=== PATIENT | male | born 1960 | race Caucasian/White ===

== ENCOUNTER 2017-01-18 10:11 | Emergency (ER) | payer OTHER ==
[~2017-01-18] VITALS: Ht 188 cm; Wt 75.0 kg
[~2017-01-18 10:11] MED LIST: ASPIR-TRIN325 M1 PO; CATAPRES-TTS 30.3 MG TD; CITALOPRAM HBR10 MG PO; CLONIDINE HCL0.2 MG PO; ENDOCET 5-3251 EACH PO; FLEXERIL10 MG PO; GABAPENTIN300 MG PO; INDERAL LA80 MG PO; INDERAL80 M1 PO; INDERAL80 MG PO; LIDODERM 5% P1 PATCH TD; MOTRIN600 MG PO; MOTRIN800 MG PO; MYSOLINE50 MG PO; NAPROXEN500 M1 PO; NORCO 5/3251 TABLET PO; NORVASC5 MG PO; OxyCODONE PO; PROPRANOLOL HC160 MG PO; PROPRANOLOL HCL80 MG PO; TRAMADOL HCL50 MG PO; ULTRAM50 MG PO; VICODIN,LORT1 TABLET PO
[2017-01-18 10:22] VITALS: BP 124/79
[2017-01-18] MEDS ORDERED: BACTRIM,SEPT1 TABLET PO (12:36)
[2017-01-18] MEDS ORDERED: ULTRAM50 MG PO (12:36)
[2017-01-18] MEDS ORDERED: KEFLEX500 MG PO (12:36)
== END 2017-01-18 13:17 | disposition home or self-care (01) ==
LOC: EME 10:11 → RME 10:11
PROC: 0H9KXZZ Drainage of Right Lower Leg Skin, External Approach (ICD-10-PCS; principal; 2017-01-18)
DX: L02.415 Cutaneous abscess of right lower limb (principal); G20 Parkinson's disease; F17.200 Nicotine dependence, unspecified, uncomplicated
CPT/HCPCS: 73564; 99281; 99284

== ENCOUNTER 2017-02-05 23:15 | Emergency (ER) | payer OTHER ==
[~2017-02-05] VITALS: Ht 188 cm; Wt 75.4 kg
[~2017-02-05 23:15] MED LIST changes: +BACTRIM,SEPT1 TABLET PO; +KEFLEX500 MG PO
[2017-02-06] MEDS ORDERED: CLEOCIN300 MG PO (00:03)
[2017-02-06 00:16] VITALS: BP 122/78
== END 2017-02-06 00:17 | disposition home or self-care (01) ==
LOC: EME 23:15
PROC: 0S9C3ZZ Drainage of Right Knee Joint, Percutaneous Approach (ICD-10-PCS; principal; 2017-02-05)
DX: M70.51 Other bursitis of knee, right knee (principal); I10 Essential (primary) hypertension; G20 Parkinson's disease; F17.200 Nicotine dependence, unspecified, uncomplicated
CPT/HCPCS: 80048; 85027; 99281; 99284; G0480

== ENCOUNTER 2017-03-31 12:09 | Emergency (ER) | payer OTHER ==
[~2017-03-31] VITALS: Ht 188 cm; Wt 74.0 kg
[~2017-03-31 12:09] MED LIST changes: +CLEOCIN300 MG PO
[2017-03-31 13:40] LABS: CHLORIDE 105 mEq/L (99-109); POTASSIUM 5.1 mEq/L (3.7-5.4); SODIUM 140 mEq/L (136-147)
[2017-03-31 13:43] LABS: GLUCOSE 87 mg/dL (70-99)
[2017-03-31 13:44] LABS: ANION GAP 13 MEQ/L (2-14)
[2017-03-31 13:45] LABS: TOTAL BILIRUBIN 0.7 mg/dL (0.0-1.0)
[2017-03-31 13:46] LABS: ALKALINE PHOSPHATASE 65 IU/L (3-129); GFR ESTIMATE (CALCULATED) > 59 mL/min/; SERUM ETHYL ALCOHOL 237 mg/dL
[2017-03-31 13:48] LABS: UREA NITROGEN (BUN) 9 mg/dL (9-23)
[2017-03-31 13:50] LABS: LIPASE 37 U/L (1.0-51.0)
[2017-03-31 14:26] LABS: EOSINOPHIL (%) 3.6 % (0-5); EOSINOPHIL COUNT 0.2 K/uL (0-0.3); HEMATOCRIT 43.5 % (38.0-50.0); IMMATURE GRANULOCYTE (%) 0.2 % (0.0-0.7); INSTRUMENT ABS NEUTROPHIL CT 2.4 K/uL; LYMPHOCYTE COUNT 1.4 K/uL (1.0-2.8); MCH 34.6 PG (29.0-34.0); MCHC 33.8 G/DL (30.0-36.0); MCV 102.4 FL (86-99); MEAN PLAT.VOLUME 10.8 uM^3 (9.0-12.4); MONOCYTE (%) 10.9 % (3-12); MONOCYTE COUNT 0.5 K/uL (0-0.8); NEUTROPHIL (%) 52.8 % (45-76); NEUTROPHIL COUNT 2.4 K/uL (1.8-6.4); PLATELET COUNT 119 K/uL (156-360); RBC DIS.WIDTH-CV 12.7 % (11.8-14.6); RBC DIS.WIDTH-SD 48.2 % (39-53); RED BLOOD COUNT 4.25 M/uL (4.00-5.50); WHITE BLOOD COUNT 4.5 K/uL (4.1-10.2)
[2017-03-31 15:03] LABS: PROTHROMBIN TIME 10.1 (9.2-11.2)
[2017-03-31 15:50] VITALS: BP 121/77
== END 2017-03-31 16:11 | disposition home or self-care (01) ==
LOC: EME 12:09 → EXP 12:09
PROVIDERS: Physician Assistant
DX: K62.5 Hemorrhage of anus and rectum (principal); D69.6 Thrombocytopenia, unspecified; F10.10 Alcohol abuse, uncomplicated; Y90.7 Blood alcohol level of 200-239 mg/100 ml; F17.200 Nicotine dependence, unspecified, uncomplicated
CPT/HCPCS: 74177; 80053; 83690; 85025; 85610; 87493; 99281; 99285; G0480

== ENCOUNTER 2017-05-04 13:21 | Emergency (ER) | payer OTHER ==
[~2017-05-04] VITALS: Ht 188 cm; Wt 74.1 kg
[2017-05-04 14:07] LABS: HEMATOCRIT 44.1 % (38.0-50.0); MCH 34.6 PG (29.0-34.0); MCHC 33.8 G/DL (30.0-36.0); MCV 102.3 FL (86-99); MEAN PLAT.VOLUME 11.2 uM^3 (9.0-12.4); PLATELET COUNT 106 K/uL (156-360); RBC DIS.WIDTH-SD 45.7 % (39-53); RED BLOOD COUNT 4.31 M/uL (4.00-5.50)
[2017-05-04 14:16] LABS: CHLORIDE 109 mEq/L (99-109); POTASSIUM 4.5 mEq/L (3.7-5.4); SODIUM 143 mEq/L (136-147)
[2017-05-04 14:18] LABS: GLUCOSE 175 mg/dL (70-99)
[2017-05-04 14:20] LABS: ANION GAP 17 MEQ/L (2-14)
[2017-05-04 14:21] LABS: SERUM ETHYL ALCOHOL < 10 mg/dL
[2017-05-04 14:22] LABS: GFR ESTIMATE (CALCULATED) > 59 mL/min/
[2017-05-04 14:23] LABS: UREA NITROGEN (BUN) 8 mg/dL (9-23)
[2017-05-04] MEDS ORDERED: LIBRIUM25 MG PO (15:26)
[2017-05-04 16:55] VITALS: BP 160/96
[2017-05-04] MEDS ORDERED: UNABLE TO OBTAIN (16:57)
== END 2017-05-04 17:05 | disposition home or self-care (01) ==
LOC: EME 13:21
PROVIDERS: Emergency Medicine
DX: G40.909 Epilepsy, unspecified, not intractable, without status epilepticus (principal); I10 Essential (primary) hypertension; R11.2 Nausea with vomiting, unspecified; S00.81XA Abrasion of other part of head, initial encounter; W19.XXXA Unspecified fall, initial encounter; Y92.811 Bus as the place of occurrence of the external cause; F10.20 Alcohol dependence, uncomplicated; F17.200 Nicotine dependence, unspecified, uncomplicated
CPT/HCPCS: 70450; 80048; 81003; 85027; 93005; 99281; 99285; G0480; J2060; J2405; J7030

== ENCOUNTER 2018-01-08 21:19 | Emergency (ER) | payer OTHER ==
[~2018-01-08] VITALS: Ht 188 cm; Wt 77.5 kg
[~2018-01-08 21:19] MED LIST changes: +LIBRIUM25 MG PO; +UNABLE TO OBTAIN
[2018-01-08] MEDS ORDERED: KEFLEX500 MG PO (23:54)
[2018-01-09 00:27] VITALS: BP 129/73
== END 2018-01-09 00:27 ==
LOC: EME → EDBD 21:19 → EME 21:19
PROC: 2W3CX1Z Immobilization of Right Lower Arm using Splint (ICD-10-PCS; principal; 2018-01-08)
DX: S62.396A Other fracture of fifth metacarpal bone, right hand, initial encounter for closed fracture (principal); W22.8XXA Striking against or struck by other objects, initial encounter; I10 Essential (primary) hypertension; G20 Parkinson's disease; B19.20 Unspecified viral hepatitis C without hepatic coma; F17.200 Nicotine dependence, unspecified, uncomplicated; Z88.8 Allergy status to other drugs, medicaments and biological substances
CPT/HCPCS: 73130